=== PATIENT | female | born 1955 | race African-American/Black ===

== ENCOUNTER 2017-03-31 09:10 | Day surgery (SDC) | payer OTHER ==
[2017-03-31 09:34] LABS: BASOPHIL 0.9 % (0-2.0); EOSINOPHIL 6.9 % (0-4.5); MCH 26.9 pg (25.7-33.7); MCHC 31.8 g/dl (32.0-36.0); MEAN CELL VOLUME 84.5 fl (80-96); MEAN PLT VOLUME 7.5 fl (7.5-11.1); NEUTROPHILS 53.8 % (42.8-82.8); PLATELET COUNT 304 K/MM3 (134-434); RDW 15.7 % (11.6-15.6); WHITE BLOOD COUNT 7.4 K/mm3 (4.0-10.0)
[2017-03-31 09:51] LABS: INR 1.11 (0.82-1.09); PROTHROMBIN TIME (PATIENT) 12.2 SEC (9.98-11.88)
[2017-03-31 10:19] VITALS: TEMP 97.8
[2017-03-31 14:12] VITALS: BP 149/80; PULSE 70
--- NOTE | 2017-04-01 15:31 | PATH ---
Cytology Non-Gynecological Report Patient Name: YAJAIRA ROGERS [facility]. Rec. #: [id number] /Age/Gender: 1955 (Age: 61) / F Account: [id number] Location: RADIOLOGY Taken: 03/31/2017 Received: 03/31/2017 Reported: 04/01/2017 Physicians: Micheal Rutledge Specimen(s) Received RENAL CYST Clinical History Renal cyst Final Diagnosis RENAL CYST, (LEFT), ASPIRATION: CYST CONTENTS (SEE COMMENT). Comment: The aspirate is hypocellular and shows scattered bland appearing epithelioid cells, likely representing cyst lining cells, few inflammatory cells and proteinaceous material. These findings are consistent with cyst contents. Clinical and imaging correlations and followup are suggested. Electronically Signed Chet Santiago M.D. Gross Description Received is 50 cc of yellow fluid in 50% alcohol. One cytofunnel slide is made.
== END 2017-03-31 14:57 | disposition home or self-care (01) ==
LOC: JRADIR 09:10
PROVIDERS: ATTEND Urology
PROC: BT22ZZZ Computerized Tomography (CT Scan) of Left Kidney (ICD-10-PCS; principal; 2017-03-31)
PROC: 0TB13ZX Excision of Left Kidney, Percutaneous Approach, Diagnostic (ICD-10-PCS; 2017-03-31)
DX: N28.1 Cyst of kidney, acquired (principal)
CPT/HCPCS: 36415; 50390; 74425-TC; 76098-TC; 82565; 85025; 85610; 87899; 88108